=== PATIENT | female | born 1990 | race Caucasian/White ===

== ENCOUNTER 2016-08-01 17:08 | Emergency (ER) | payer BC, OTHER ==
--- NOTE | 2016-08-01 20:02 | ED ---
General Adult HPI - General Chief complaint: Abdominal Pain Stated complaint: Bleeding, 8 weeks preg Time Seen by Provider: 08/01/16 19:38 Source: patient, RN notes reviewed Mode of arrival: ambulatory Limitations: no limitations - History of Present Illness Initial comments: Patient is a , 25-year-old female who presents emergency room today with a chief complaint of vaginal spotting that began earlier this morning. Denies any bleeding at this time but does admit to some lower abdominal cramping. States she called her [employer] who advised come to the emergency room for evaluation. Patient denies any other complaints or associated symptoms. States pain in her lower abdomen currently rates as 6/10. Describes as cramping. Patient denies any recent fever, chills, shortness of breath, chest pain, back pain, nausea or vomiting, numbness or tingling, dysuria or hematuria , constipation or diarrhea, headaches or visual changes, or any other complaints. - Related Data Home Medications Medication Instructions Recorded Confirmed Pnv with Ca,No.72/Iron/FA 1 tab PO DAILY 08/01/16 08/01/16 [ Plus Tablet] Previous Rx's Medication Instructions Recorded Nitrofurantoin Monohyd/M-Cryst 100 mg PO Q12HR #14 cap 08/01/16 [Macrobid] Allergies Allergy/AdvReac Type Severity Reaction Status Date / Time Penicillins Allergy Unknown Unknown Verified 08/01/16 19:48 Childhood Review of Systems ROS Statement: Those systems with pertinent positive or pertinent negative responses have been documented in the HPI. ROS Other: All systems not noted in ROS Statement are negative. Past Medical History Past Medical History: No Reported History History of Any Multi-Drug Resistant Organisms: None Reported Past Surgical History: Appendectomy, Section Past Anesthesia/Blood Transfusion Reactions: No Reported Reaction Past Psychological History: No Psychological Hx Reported Smoking Status: Current every day smoker Past Alcohol Use History: None Reported Past Drug Use History: None Reported - Past Family History Father Additional Family Medical History / Comment(s): Bipolar General Exam - General Exam Comments Initial Comments: General: The patient is awake and alert, in no distress, and does not appear acutely ill. Eye: Pupils are equal, round and reactive to light, extra-ocular movements are intact. No nystagmus. There is normal conjunctiva bilaterally. No signs of icterus. Ears, nose, mouth and throat: There are moist mucous membranes and no oral lesions. Neck: The neck is supple, there is no tenderness or JVD. Cardiovascular: There is a regular rate and rhythm. No murmur, rub or gallop is appreciated. Respiratory: Lungs are clear to auscultation, respirations are non-labored, breath sounds are equal. No wheezes, stridor, rales, or rhonchi. Gastrointestinal: Normal appearance them. Normal bowel sounds. Soft on palpation. Patient does have mild tenderness suprapubic and left lower quadrant. No rebound tenderness. No guarding. No CVA tenderness. Musculoskeletal: Normal ROM, no tenderness. Strength 5/5. Sensation intact. Pulses equal bilaterally 2+. Neurological: A&O x 3. CN II-XII intact, There are no obvious motor or sensory deficits. Coordination appears grossly intact. Speech is normal. Skin: Skin is warm and dry and no rashes or lesions are noted. Psychiatric: Cooperative, appropriate mood & affect, normal judgment. Limitations: no limitations Course Vital Signs 08/01/16 17:49 Temperature 97.9 F Pulse Rate 76 Respiratory 18 Rate Blood Pressure 113/61 O2 Sat by Pulse 99 Oximetry Medical Decision Making - Medical Decision Making Patient reexamined at this time shows no signs of distress resting comfortable in the stretcher. Denies any bleeding at this time. States feeling comfortable here. Ultrasound reviewed and shows no IUP measuring 8 weeks 2 days. Patient's labs reviewed 14,000 white count. 15 white cells in the urinalysis. Remaining labs unremarkable. Patient will be cover for urinary tract infection started on Macrobid and advised follow-up the [employer] over the last 2 days. Options were discussed about pelvic exam here the emergency room which patient has declined stating she will follow up with [employer]. Patient is advised return to emergency room if any symptoms increase or worsen or fail concerns. - Lab Data Result diagrams: 08/01/16 20:06 08/01/16 20:06 Lab Results 08/01/16 08/01/16 08/01/16 Range/Units 19:45 20:06 20:06 WBC 14.0 H (3.8-10.6) k/uL RBC 4.65 (3.80-5.40) m/uL Hgb 11.9 (11.4-16.0) gm/dL Hct 37.4 (34.0-46.0) % MCV 80.5 (80.0-100.0) fL MCH 25.6 (25.0-35.0) pg MCHC 31.8 (31.0-37.0) g/dL RDW 15.2 (11.5-15.5) % Plt Count 365 (150-450) k/uL Neutrophils % 66 % Lymphocytes % 27 % Monocytes % 5 % Eosinophils % 2 % Basophils % 0 % Neutrophils # 9.2 H (1.3-7.7) k/uL Lymphocytes # 3.7 (1.0-4.8) k/uL Monocytes # 0.7 (0-1.0) k/uL Eosinophils # 0.2 (0-0.7) k/uL Basophils # 0.1 (0-0.2) k/uL Sodium (137-145) mmol/L Potassium (3.5-5.1) mmol/L Chloride (98-107) mmol/L Carbon Dioxide (22-30) mmol/L Anion Gap mmol/L BUN (7-17) mg/dL Creatinine (0.52-1.04) mg/dL Est GFR (MDRD) Af Amer (>60 ml/min/1.73 sqM) Est GFR (MDRD) Non-Af (>60 ml/min/1.73 sqM) Glucose (74-99) mg/dL Calcium (8.4-10.2) mg/dL Total Bilirubin (0.2-1.3) mg/dL AST (14-36) U/L ALT (9-52) U/L Alkaline Phosphatase (38-126) U/L Total Protein (6.3-8.2) g/dL Albumin (3.5-5.0) g/dL Urine Color Light Yellow Urine Appearance Clear (Clear) Urine pH 6.5 (5.0-8.0) Ur Specific Amma 1.004 (1.001-1.035) Urine Protein Negative (Negative) Urine Glucose (UA) Negative (Negative) Urine Ketones Negative (Negative) Urine Blood Negative (Negative) Urine Nitrate Negative (Negative) Urine Bilirubin Negative (Negative) Urine Urobilinogen <2.0 (<2.0) mg/dL Ur Leukocyte Esterase Moderate H (Negative) Urine RBC 1 (0-5) /hpf Urine WBC 15 H (0-5) /hpf Ur Squamous Epith Cells 1 (0-4) /hpf Urine Bacteria Rare H (None) /hpf Urine Mucus Rare H (None) /hpf Blood Type B Positive Blood Type Recheck No 08/01/16 Range/Units 20:06 WBC (3.8-10.6) k/uL RBC (3.80-5.40) m/uL Hgb (11.4-16.0) gm/dL Hct (34.0-46.0) % MCV (80.0-100.0) fL MCH (25.0-35.0) pg MCHC (31.0-37.0) g/dL RDW (11.5-15.5) % Plt Count (150-450) k/uL Neutrophils % % Lymphocytes % % Monocytes % % Eosinophils % % Basophils % % Neutrophils # (1.3-7.7) k/uL Lymphocytes # (1.0-4.8) k/uL Monocytes # (0-1.0) k/uL Eosinophils # (0-0.7) k/uL Basophils # (0-0.2) k/uL Sodium 141 (137-145) mmol/L Potassium 3.9 (3.5-5.1) mmol/L Chloride 105 (98-107) mmol/L Carbon Dioxide 24 (22-30) mmol/L Anion Gap 12 mmol/L BUN 4 L (7-17) mg/dL Creatinine 0.48 L (0.52-1.04) mg/dL Est GFR (MDRD) Af Amer >60 (>60 ml/min/1.73 sqM) Est GFR (MDRD) Non-Af >60 (>60 ml/min/1.73 sqM) Glucose 92 (74-99) mg/dL Calcium 9.7 (8.4-10.2) mg/dL Total Bilirubin 0.2 (0.2-1.3) mg/dL AST 18 (14-36) U/L ALT 29 (9-52) U/L Alkaline Phosphatase 68 (38-126) U/L Total Protein 7.2 (6.3-8.2) g/dL Albumin 4.2 (3.5-5.0) g/dL Urine Color Urine Appearance (Clear) Urine pH (5.0-8.0) Ur Specific Amma (1.001-1.035) Urine Protein (Negative) Urine Glucose (UA) (Negative) Urine Ketones (Negative) Urine Blood (Negative) Urine Nitrate (Negative) Urine Bilirubin (Negative) Urine Urobilinogen (<2.0) mg/dL Ur Leukocyte Esterase (Negative) Urine RBC (0-5) /hpf Urine WBC (0-5) /hpf Ur Squamous Epith Cells (0-4) /hpf Urine Bacteria (None) /hpf Urine Mucus (None) /hpf Blood Type Blood Type Recheck Disposition Clinical Impression: UTI (urinary tract infection), Disposition: HOME SELF-CARE Condition: Good Instructions: Urinary Tract Infection in Women (ED) Additional Instructions: Please use medication as discussed. Please follow-up with [employer] in the next 2 days. Please return to emergency room if the symptoms increase or worsen or for any other concerns. Prescriptions: Nitrofurantoin Monohyd/M-Cryst [Macrobid] 100 mg PO Q12HR #14 cap Referrals: Frances Gibson MD [Primary Care Provider] - 1-2 days Dom Markham DO [Doctor of Osteopathic Medicine] - 1-2 days Time of Disposition: 21:08
[2016-08-01 20:15] LABS: Appearance,Urine Clear (Clear); Bacteria,Urine Rare /hpf; Bilirubin,Urine Negative (Negative); Glucose,Urine (UA) Negative (Negative); Ketones,Urine Negative (Negative); Leukocyte Esterase,Urine Moderate (Negative); Mucus,Urine Rare /hpf; Nitrite,Urine Negative (Negative); PH, Urine 6.5 (5.0-8.0); Particle Count 1510; Protein,Urine Negative (Negative); RBC,Urine 1 /hpf (0-5); Specific Gravity,Urine 1.004 (1.001-1.035); Squamous Epithelial Cell,Urine 1 /hpf (0-4); UA Billing (MACRO vs. MICRO) MICRO; Urobilinogen,Urine <2.0 mg/dL (<2.0); WBC,Urine 15 /hpf (0-5)
[2016-08-01 20:17] LABS: Basophils # (A) 0.1 k/uL (0-0.2); Basophils % (A) 0 %; CH 26.2; CHCM 32.6; Eosinophils # (A) 0.2 k/uL (0-0.7); Eosinophils % (A) 2 %; HCT 37.4 % (34.0-46.0); HDW 2.71; HGB 11.9 gm/dL (11.4-16.0); Luc # (Auto) 0.12; Luc % (Auto) 1; Lymphocytes # (A) 3.7 k/uL (1.0-4.8); Lymphocytes % (A) 27 %; MCH 25.6 pg (25.0-35.0); MCHC 31.8 g/dL (31.0-37.0); MCV 80.5 fL (80.0-100.0); Mean Platelet Volume 7.2; Monocytes # (A) 0.7 k/uL (0-1.0); Monocytes % (A) 5 %; Neutrophils # (A) 9.2 k/uL (1.3-7.7); Neutrophils % (A) 66 %; RBC 4.65 m/uL (3.80-5.40); RDW 15.2 % (11.5-15.5); WBC (Perox) 14.04
[2016-08-01 20:27] LABS: ALT 29 U/L (9-52); AST 18 U/L (14-36); Alkaline Phosphatase 68 U/L (38-126); Anion Gap 12 mmol/L; Blood Urea Nitrogen 4 mg/dL (7-17); Calcium 9.7 mg/dL (8.4-10.2); Carbon Dioxide 24 mmol/L (22-30); Chloride 105 mmol/L (98-107); Glucose 92 mg/dL (74-99); Non-African American GFR(MDRD) >60 (>60 ml/min/1.73 sqM); Potassium 3.9 mmol/L (3.5-5.1); Sodium 141 mmol/L (137-145); Total Bilirubin 0.2 mg/dL (0.2-1.3); Total Protein 7.2 g/dL (6.3-8.2)
--- NOTE | 2016-08-01 21:00 | US ---
EXAMINATION TYPE: US OB <=14 wks DATE OF EXAM: 08/01/2016 7:40 PM COMPARISON: NONE CLINICAL HISTORY: bleeding- dark, cramping, . EXAM PERFORMED: Transabdominal (TA) EXAM MEASUREMENTS: GESTATIONAL AGE / DATING Dates by LMP: ( 8 weeks/1 days) EDC: 03/12/2017 Dates by Current Scan: (8 weeks/2 days) EDC: 03/11/2017 MATERNAL ANATOMY Uterus: 8.5 x 6.8 x 5.7 cm Right Ovary: 3.4 x 1.7 x 2.3 cm Left Ovary: 3.7 x 1.9 x 1.7 cm Post CDS / Adnexa: no free fluid Presence of subchorionic bleed: 2.3 x 0.9 x 0.3 cm GESTATION / SURVEY CRL: 1.8 cm (8 weeks/2 days) MSD: not measured Yolk Sac (normal less than 6mm): 4.2 mm Heart Rate: 162 bpm Rhythm: Normal IUP: Viable IUP Date of LMP: 06/05/2016, Beta HcG (if available): not available IMPRESSION: Live IUP measuring 8 weeks 2 days
[2016-08-01 21:14] LABS: HCG,Quantitative Serum 86632.7 mIU/mL
[2016-08-01 21:42] VITALS: BP 100/64; PULSE 69; RESP 16; TEMP 99.3
== END 2016-08-01 21:42 | disposition home or self-care (01) ==
LOC: EC 17:08
DX: O23.41 Unspecified infection of urinary tract in pregnancy, first trimester (principal); O99.331 Smoking (tobacco) complicating pregnancy, first trimester; F17.200 Nicotine dependence, unspecified, uncomplicated; Z3A.08 8 weeks gestation of pregnancy; Z88.0 Allergy status to penicillin
CPT/HCPCS: 36415; 76801; 80053; 81001; 84702; 85025; 86900; 86901; 87086; 99284

== ENCOUNTER 2017-01-16 00:15 | Outpatient (CLI) | payer OTHER ==
[2017-01-16 02:14] VITALS: BP 114/66; PULSE 86; RESP 14; TEMP 96.5
--- NOTE | 2017-01-18 12:05 | P.MSEPDOC ---
Presenting Problems - Arrival Data Date of Arrival on Unit: 01/16/17 Time of Arrival on Unit: 00:00 Mode of Transport: Wheelchair - Complaint OB-Reason for Admission/Chief Complaint: Possible Onset of Labor Medical History - Information : 3 Para: 2 Term: 2 : 0 Abortions: Spontaneous or Elective: 0 Number of Living Children: 2 - Gestational Age Expected Date of Delivery: 03/12/17 Gestational Age by ROMAN (wks/days): 32 Weeks and 3 Days Review of Systems - Review of Systems Constitutional: No problems Breast: No problems ENT: No problems Cardiovascular: No problems Respiratory: No problems Gastrointestinal: No problems Genitourinary: No problems Musculoskeletal: No problems Neurological: No problems Skin: No problems Vital Signs - Temperature Temperature: 96.5 F Temperature Source: Tympanic - Pulse Right Brachial Pulse Rate: 86 Pulse Assessment Method: Automatic Cuff - Respirations Respiratory Rate: 14 Oxygen Delivery Method: Room Air - Blood Pressure Right Arm Blood Pressure: 114/66 Blood Pressure Mean: 82 Blood Pressure Source: Automatic Cuff Medical Screen Scoring (Pre) - Cervical Exam Dilation: 0 cm = 0 Effacement: More than 50% = 2 Membranes: Intact - Uterine Contractions Frequency: N/A Duration: N/A Intensity: N/A - Maternal Vital Signs Maternal Temperature: N/A Maternal Respirations: N/A - Maternal Trauma Maternal Trauma: N/A - Assessment Heart Rate - NICHD Category: Category I (Normal) = 0 Position: N/A Station: N/A - Total Score Total Score (Pre): 2 - Level of Risk Level of Risk: N/A Physician Notification (Pre) - Physician Notified Physician Notified Date: 01/16/17 Physician Notified Time: 01:20 Physician/Practitioner Notifed:: Dr. Watkins New Order Received: Yes Disposition - Disposition Discharge Date: 01/16/17 Discharge Time: 01:30 I agree with the RN Medical Screening Exam: No Physician's MSE Comment: note incomplete (disposition) Risk & Benefit of care provided described in d/c instruction: No Diagnosis: 32 WEEKS GESTATION OF
== END 2017-01-16 01:30 | disposition home or self-care (01) ==
LOC: FBPOP 00:15
PROVIDERS: ATTEND Obstetrics & Gynecology
DX: O24.419 Gestational diabetes mellitus in pregnancy, unspecified control (principal); Z3A.32 32 weeks gestation of pregnancy
CPT/HCPCS: 59025; 84112; 99213

== ENCOUNTER 2017-03-04 02:24 | Outpatient (CLI) | payer OTHER ==
[2017-03-04 04:06] VITALS: BP 117/72; PULSE 82; RESP 18; TEMP 96.5
--- NOTE | 2017-04-22 09:25 | P.MSEPDOC ---
Presenting Problems - Arrival Data Date of Arrival on Unit: 03/04/17 Time of Arrival on Unit: 02:25 Mode of Transport: Wheelchair - Complaint OB-Reason for Admission/Chief Complaint: Possible Onset of Labor Comment: cnx beginning about 0000 Medical History - Information : 3 Para: 2 Term: 2 : 0 Abortions: Spontaneous or Elective: 0 Number of Living Children: 2 - Gestational Age Gestational Age by ROMAN (wks/days): 38 Weeks and 6 Days - History Complications: GBS+, Smoker Review of Systems - Review of Systems Constitutional: No problems Breast: No problems ENT: No problems Cardiovascular: No problems Respiratory: No problems Gastrointestinal: No problems Genitourinary: No problems Musculoskeletal: No problems Neurological: No problems Skin: No problems Vital Signs - Temperature Temperature: 96.5 F Temperature Source: Temporal Artery Scan - Pulse Pulse Oximetery Pulse Rate: 82 Pulse Assessment Method: Pulse Oximetry - Respirations Respiratory Rate: 18 Oxygen Delivery Method: Room Air O2 Sat by Pulse Oximetry: 97 - Blood Pressure Right Arm Blood Pressure: 117/72 Blood Pressure Mean: 87 Blood Pressure Source: Automatic Cuff Medical Screen Scoring (Pre) - Cervical Exam Dilation: 1-3 cm = 1 Effacement: More than 50% = 2 Membranes: Intact - Uterine Contractions Frequency: Scheduled / = 6 Duration: > 40 seconds = 2 Intensity: N/A - Maternal Vital Signs Maternal Temperature: N/A Maternal Blood Pressure: N/A Signs of Preeclampsia: N/A - Maternal Trauma Maternal Trauma: N/A - Assessment Baseline FHR: 125 Heart Rate - NICHD Category: Category I (Normal) = 0 NST: Reactive Position: N/A Station: N/A - Total Score Total Score (Pre): 11 - Level of Risk Level of Risk: High (10+) Physician Notification (Pre) - Physician Notified Physician Notified Date: 03/04/17 Physician Notified Time: 03:35 Physician/Practitioner Notifed:: Anselmo Spoke With: Anselmo New Order Received: Yes (see comment below) - Notification Comment Comment: Discussed options with patient for discharge. Dr. Briones gave patient the option to stay and have cervix re-checked in another hour, or she may go home and walk around. Patient wished to be discharged to go home and walk. Given thorough instructions for when to return. Patient to follow up at next appt with Dr. Escobar this or to call office to update Dr. Escobar and inquire about sooner appt. Patient verablized understanding of options and for when to return to hospital. Medical Screen Scoring (Post) - Cervical Exam Dilation: 1-3 cm = 1 Effacement: More than 50% = 2 Membranes: Intact - Uterine Contractions Frequency: Scheduled / = 6 Duration: > 40 seconds = 2 Intensity: N/A - Maternal Vital Signs Maternal Temperature: N/A Maternal Blood Pressure: N/A Signs of Preeclampsia: N/A Maternal Respirations: N/A - Maternal Trauma Maternal Trauma: N/A - Assessment Heart Rate: 125 Heart Rate - NICHD Category: Category I (Normal) = 0 NST: Reactive Position: N/A Station: N/A - Total Score Total Score (Post): 11 - Post Treatment Level of Risk Post Treatment Level of Risk: High (10+) Physician Notification (Post) - Physician Notified Physician Notified Date: 03/04/17 Physician Notified Time: 03:35 Physician/Practitioner Notified:: Anselmo Spoke With: Anselmo New Order Received: Yes (discharge order) - Notification Comment Comment: Discussed options with patient for discharge. Dr. Briones gave patient the option to stay and have cervix re-checked in another hour, or she may go home and walk around. Patient wished to be discharged to go home and walk. Given thorough instructions for when to return. Patient to follow up at next appt with Dr. Escobar this or to call office to update Dr. Escobar and inquire about sooner appt. Patient verablized understanding of options and for when to return to hospital. Disposition - Disposition OB Disposition: Discharge to home Discharge Date: 03/04/17 Discharge Time: 03:45 I agree with the RN Medical Screening Exam: Yes Risk & Benefit of care provided described in d/c instruction: Yes Diagnosis: FALSE LABOR BEFORE 37 COMPLETED WEEKS OF GEST, THIRD TRI
== END 2017-03-04 03:45 | disposition home or self-care (01) ==
LOC: FBPOP 02:24
PROVIDERS: ATTEND Obstetrics & Gynecology
DX: O47.03 False labor before 37 completed weeks of gestation, third trimester (principal); Z3A.38 38 weeks gestation of pregnancy
CPT/HCPCS: 59025; 99213

== ENCOUNTER 2017-03-08 11:40 | Outpatient (CLI) | payer OTHER ==
[2017-03-08 12:11] VITALS: BP 115/69; PULSE 85; RESP 18; TEMP 98.3
--- NOTE | 2017-03-09 13:31 | P.MSEPDOC ---
Presenting Problems - Arrival Data Date of Arrival on Unit: 03/08/17 Time of Arrival on Unit: 11:45 Mode of Transport: Ambulatory - Complaint OB-Reason for Admission/Chief Complaint: Observation/Evaluation Comment: ligament pain, decreased movement Medical History - Information : 3 Para: 2 Term: 2 : 0 Abortions: Spontaneous or Elective: 0 Number of Living Children: 2 - Gestational Age Expected Date of Delivery: 03/12/17 Gestational Age by ROMAN (wks/days): 39 Weeks and 4 Days - History Complications: Prior , Smoker Review of Systems - Review of Systems Constitutional: No problems Breast: No problems ENT: No problems Cardiovascular: No problems Respiratory: No problems Gastrointestinal: No problems Genitourinary: No problems Musculoskeletal: No problems Neurological: No problems Skin: No problems Vital Signs - Temperature Temperature: 98.3 F Temperature Source: Oral - Pulse Right Sitting Brachial Pulse Rate: 85 Pulse Assessment Method: Automatic Cuff - Respirations Respiratory Rate: 18 Oxygen Delivery Method: Room Air - Blood Pressure Right Arm Sitting Blood Pressure: 115/69 Blood Pressure Mean: 84 Blood Pressure Source: Automatic Cuff Medical Screen Scoring (Pre) - Cervical Exam Dilation: Exam Deferred Effacement: Exam Deferred - Uterine Contractions Frequency: N/A Duration: N/A Intensity: N/A - Maternal Vital Signs Maternal Temperature: N/A Maternal Blood Pressure: N/A Signs of Preeclampsia: N/A Maternal Respirations: N/A - Maternal Trauma Maternal Trauma: N/A - Assessment Baseline FHR: 135 Heart Rate - NICHD Category: Category I (Normal) = 0 - Total Score Total Score (Pre): 0 - Level of Risk Level of Risk: Low (0-5) Medical Screen Scoring (Post) - Cervical Exam Dilation: 1-3 cm = 1 - Uterine Contractions Frequency: > 5 minutes apart = 1 Duration: N/A Intensity: N/A - Maternal Vital Signs Maternal Temperature: N/A Maternal Blood Pressure: N/A Signs of Preeclampsia: N/A Maternal Respirations: N/A - Maternal Trauma Maternal Trauma: N/A - Assessment Heart Rate: 120 Heart Rate - NICHD Category: Category I (Normal) = 0 NST: Reactive Position: N/A Station: N/A - Total Score Total Score (Post): 2 - Post Treatment Level of Risk Post Treatment Level of Risk: Low (0-5) Physician Notification (Post) - Physician Notified Physician Notified Date: 03/08/17 Physician Notified Time: 12:47 Physician/Practitioner Notified:: Dr Escobar Spoke With: Dr Escobar New Order Received: Yes - Notification Comment Comment: Discharge home Disposition - Disposition OB Disposition: Discharge to home Discharge Date: 03/08/17 Discharge Time: 12:48 I agree with the RN Medical Screening Exam: Yes Risk & Benefit of care provided described in d/c instruction: Yes Diagnosis: FALSE LABOR AT OR AFTER 37 COMPLETED WEEKS OF GESTATION
== END 2017-03-08 12:48 | disposition home or self-care (01) ==
LOC: FBPOP 11:40
PROVIDERS: ATTEND Obstetrics & Gynecology
DX: O47.1 False labor at or after 37 completed weeks of gestation (principal); Z3A.39 39 weeks gestation of pregnancy
CPT/HCPCS: 59025; 99213

== ENCOUNTER 2017-03-13 00:01 | Inpatient (IN) | payer OTHER ==
[2017-03-13] MEDS ORDERED: OXYTOCIN 10 UNIT/ML 1 ML VIAL IM PRN (01:38)
[2017-03-13] MEDS ORDERED: CARBOPROST TROMETHAMINE 250 MCG/ML 1 ML AMP IM PRN (01:38)
[2017-03-13] MEDS ORDERED: LIDOCAINE 1% (PF) 10 MG/ML (30 ML SDV) SQ PRN (01:38)
[2017-03-13] MEDS ORDERED: METHYLERGONOVINE 0.2 MG/ML 1 ML AMP IM PRN (01:38)
[2017-03-13] MEDS ORDERED: TERBUTALINE 1 MG/ML VIAL SQ PRN (01:38)
[2017-03-13 01:52] VITALS: BMI 31.2
[2017-03-13] MEDS: LACTATED RINGERS 1,000 ML IV SCH ×3 (01:58→21:20)
[2017-03-13 02:09] LABS: Anisocytosis Slight; Basophils % (A) 0 %; CH 23.3; Eosinophils # (A) 0.2 k/uL (0-0.7); Eosinophils % (A) 1 %; HCT 28.4 % (34.0-46.0); HDW 3.84; HGB 9.5 gm/dL (11.4-16.0); Hypochromasia Marked; Luc # (Auto) 0.28; Luc % (Auto) 2; Lymphocytes # (A) 3.2 k/uL (1.0-4.8); Lymphocytes % (A) 21 %; MCH 25.3 pg (25.0-35.0); MCHC 33.4 g/dL (31.0-37.0); MCV 75.8 fL (80.0-100.0); Mean Platelet Volume 7.3; Microcytosis Slight; Monocytes # (A) 0.7 k/uL (0-1.0); Monocytes % (A) 5 %; Neutrophils # (A) 11.3 k/uL (1.3-7.7); Neutrophils % (A) 72 %; Poikilocytosis Slight; RBC 3.75 m/uL (3.80-5.40); RDW 16.7 % (11.5-15.5); WBC 15.8 k/uL (3.8-10.6); WBC (Perox) 15.91
[2017-03-13] MEDS: CLINDAMYCIN 900 MG in DEXTROSE 5% IN WATER 50 ML IVPB SCH ×4 (02:37→21:19)
[2017-03-13] MEDS: BUTORPHANOL 1 MG/ML 1 ML VIAL IV PRN ×2 (03:20→05:53)
[2017-03-13] MEDS ORDERED: fentaNYL (PF) 50 MCG/ML 5 ML AMP ONE (07:41)
[2017-03-13] MEDS ORDERED: SODIUM CHLORIDE 0.9% 100 ML BAG ONE (07:41)
[2017-03-13] MEDS ORDERED: BUPIVACAINE (PF) 0.25% 30 ML VIAL ONE (07:41)
[2017-03-13] MEDS ORDERED: BUPIVACAINE (PF) 0.25% 25 ML, fentaNYL (PF) 200 MCG in SODIUM CHLORIDE 0.9% 71 ML EPIDURAL ONE (07:59)
--- NOTE | 2017-03-13 08:26 | P.HPOB ---
History of Present Illness H&P Date: 03/13/17 Chief Complaint: Intrauterine at 40-1/7 weeks, contractions Lorena is a very pleasant 3 para 2001 at 40-1/7 weeks with an estimated due date of 03/12/2017. She presented to labor and delivery last night with complaints of contractions every 5 minutes. On the monitor she was felicity regularly and initially her cervix was 4 cm dilated. After an hour of monitoring she made change to 5 cm and was admitted to labor and delivery. At this time she did note movement, denied loss of fluid or vaginal bleeding. She did minimal overnight but did receive 2 doses of Stadol for pain control. She currently has an epidural. blood work showed a blood type of B+ she was rubella, hepatitis B surface antigen negative, group beta strep positive and is being treated with clindamycin. Her HIV is negative. OB history she does have a history of a primary low transverse section with her first and subsequent successful with #2. She did is desirous of a vaginal this time Past Medical History Past Medical History: No Reported History History of Any Multi-Drug Resistant Organisms: None Reported Past Surgical History: Appendectomy, Section Past Anesthesia/Blood Transfusion Reactions: No Reported Reaction Past Psychological History: No Psychological Hx Reported Smoking Status: Current every day smoker Past Alcohol Use History: None Reported Past Drug Use History: None Reported - Past Family History Father Additional Family Medical History / Comment(s): Bipolar Medications and Allergies Home Medications Medication Instructions Recorded Confirmed Type Omeprazole [PriLOSEC] 40 mg PO DAILY 03/04/17 03/13/17 History Pnv No.95/Ferrous Fum/Folic AC 1 tab PO DAILY 03/08/17 03/13/17 History [ Multivitamin Tablet] Allergies Allergy/AdvReac Type Severity Reaction Status Date / Time Penicillins Allergy Unknown Unknown Verified 03/13/17 00:12 Childhood Exam Osteopathic Statement: *. No significant issues noted on an osteopathic structural exam other than those noted in the History and Physical/Consult. - Vital Signs Vital signs: Vital Signs Temp Pulse Resp BP Pulse Ox 03/13/17 00:14 96.7 F L 84 18 105/63 97 Intake and Output 03/12/17 03/13/17 03/13/17 22:59 06:59 14:59 Intake Total 50 Balance 50 Intake: Intake, IV Titration 50 Amount Clindamycin 900 mg In 50 Dextrose 5% in Water 50 ml @ 100 mls/hr IVPB Q8H [facility] Rx#:[id number] Other: # Voids 2 Weight 82.554 kg - OBG Physical Exam Abdomen: Gravid and appropriate for gestational age Cervix: 5 cm dilated per RN Results Result Diagrams: 03/13/17 01:55 Abnormal Lab Results - Last 24 Hours (Table) 03/13/17 Range/Units 01:55 WBC 15.8 H (3.8-10.6) k/uL RBC 3.75 L (3.80-5.40) m/uL Hgb 9.5 L (11.4-16.0) gm/dL Hct 28.4 L (34.0-46.0) % MCV 75.8 L (80.0-100.0) fL RDW 16.7 H (11.5-15.5) % Neutrophils # 11.3 H (1.3-7.7) k/uL Assessment and Plan (1) Term Narrative/Plan: She was admitted to labor and delivery for expectant management. Anticipate spontaneous vaginal delivery. Status: Acute (2) Positive GBS test Status: Acute (3) Previous section Status: Acute
[2017-03-13] MEDS ORDERED: OXYTOCIN 20 UNITS/1000 ML NS 1,000 ML IV SCH ×2 (09:00→11:00)
[2017-03-13] MEDS ORDERED: CLINDAMYCIN 900 MG in DEXTROSE 5% IN WATER 50 ML IVPB SCH ×2 (09:43)
[2017-03-13] MEDS ORDERED: diphenhydrAMINE 50 MG/ML 1 ML VIAL IVP PRN ×2 (10:51)
[2017-03-13] MEDS ORDERED: Acetaminophen-Codeine 300-30mg TAB PO PRN (10:51)
[2017-03-13] MEDS ORDERED: LANOLIN CREAM 5 GM TUBE TOPICAL PRN (10:51)
[2017-03-13] MEDS ORDERED: ZOLPIDEM 5 MG TAB PO PRN (10:51)
[2017-03-13] MEDS ORDERED: HYDROCORTISONE 2.5% RECTAL CREAM 30 GM TUBE RECTAL PRN (10:51)
[2017-03-13] MEDS ORDERED: ACETAMINOPHEN TAB 325 MG TAB PO PRN (10:51)
[2017-03-13] MEDS ORDERED: diphenhydrAMINE 25 MG CAP PO PRN (10:51)
[2017-03-13] MEDS ORDERED: WITCH HAZEL 1 EACH MED..PAD TOPICAL PRN (10:51)
[2017-03-13] MEDS ORDERED: diphenhydrAMINE 50 MG CAP PO PRN (10:51)
[2017-03-13] MEDS ORDERED: SIMETHICONE 80 MG CHEWABLE PO PRN (10:51)
[2017-03-13] MEDS ORDERED: BENZOCAINE/MENTHOL SPRAY 1 GM/SPRAY AEROSOL TOPICAL PRN (10:51)
--- NOTE | 2017-03-13 10:56 | P.PROBDLV ---
Vaginal Delivery Note - . Vaginal Delivery Note: The patient is a 26-year-old 3 para 2001 admitted at 40 and one sevenths weeks by good dating parameters. She is admitted in early active labor having changed her cervix in triage from 4-5 cm. On admission, all signs reassuring. She does carry a history of a previous section with a successful vaginal after section in her second . She has requested vaginal trial of labor for this . She is also known to be group B strep positive. As result, she had antibiotic prophylaxis started and an epidural catheter placed for analgesia. She later underwent artificial rupture of membranes and had Pitocin augmentation started. She then progressed fairly rapidly through the remainder the active phase of labor to complete where after she pushed over the course of approximately 40 minutes to a normal spontaneous vaginal delivery, successful , of a viable 8 lbs. 6 oz. baby boy with Apgars of 8 at 1 minute and 9 at 5 minutes. The placenta was delivered spontaneously, intact, and grossly normal with a grossly normal, centrally inserted three-vessel cord. A small second-degree midline episiotomy was cut for delivery over the site of a previous episiotomy. This was noted to have extended minimally. It was repaired in standard fashion using 3-0 chromic catgut without difficulty. Estimated blood loss for the case was approximately 300 mL. There were no complications. All sponge, instrument, and needle counts were correct. Both mother and infant are resting comfortably in recovery.
[2017-03-13] MEDS: Acetaminophen-Codeine 300-30mg TAB PO PRN (14:14)
[2017-03-13] MEDS: SENNOSIDES-DOCUSATE SODIUM 1 EACH TAB PO SCH (20:12)
[2017-03-13] MEDS: IBUPROFEN 600 MG TAB PO PRN (20:13)
[2017-03-14] MEDS: Acetaminophen-Codeine 300-30mg TAB PO PRN (00:12)
[2017-03-14] MEDS: IBUPROFEN 600 MG TAB PO PRN (06:06)
[2017-03-14] MEDS: SENNOSIDES-DOCUSATE SODIUM 1 EACH TAB PO SCH (08:23)
--- NOTE | 2017-03-14 08:55 | P.DS ---
Providers Date of admission: 03/13/17 01:30 Expected date of discharge: 03/14/17 Attending physician: Bassem Escobar Primary care physician: Bassem Escobar - Discharge Diagnosis(es) (1) Normal spontaneous vaginal delivery Current Visit: Yes Status: Acute (2) Vaginal after section Current Visit: Yes Status: Acute Hospital Course: The patient is a 26-year-old 3 para 2 scissors or 2 admitted at 40 and one sevenths weeks by good dating parameters. She carries a history of a previous section followed by successful delivery and had requested vaginal trial of labor. She presented to labor and delivery in early active labor with all signs reassuring. She was additionally group B strep positive and had antibiotic prophylaxis started. She made relatively slow progress but did have an epidural catheter placed for analgesia. She then had Pitocin augmentation started as well as artificial rupture of membranes for clear fluid. She then made fairly rapid progress through the remainder of the active phase of labor to complete and pushed to a normal spontaneous vaginal delivery of a viable 8 lbs. 6 oz. baby boy with Apgars of 8 at 1 minute and 9 at 5 minutes. Her course was unremarkable with vital signs remaining stable and her temperature was afebrile throughout. She was deemed stable for discharge on day #1 and was discharged home to follow-up in the office in 6 weeks' time routinely. Discharge instructions included calling for any significantly increased bleeding or foul-smelling lochia, significantly increased fever or abdominal pain, perineal complaints, breast complaints, or anything else that concerned her. She was additionally instructed to have nothing in vagina for at least 6 weeks time to include intercourse. She understood her instructions and agrees to follow up as noted above. Discharge medications included continued vitamins as well as [id number] analgesic pain medications. Maternal blood type is B+ and rubella status is immune. She had initially considered tubal ligation but is currently not certain whether she wishes to have this performed at or around her 6 week visit. Procedures: #1. Antibody prophylaxis #2. Epidural analgesia #3. Artificial rupture of membranes #4. Pitocin augmentation #5. Normal spontaneous vaginal delivery # 6. Second-degree midline episiotomy and repair Patient Condition at Discharge: Good Plan - Discharge Summary New Discharge Prescriptions: No Action Omeprazole [PriLOSEC] 40 mg PO DAILY Pnv No.95/Ferrous Fum/Folic AC [ Multivitamin Tablet] 1 tab PO DAILY Discharge Medication List Omeprazole [PriLOSEC] 40 mg PO DAILY 03/04/17 [History] Pnv No.95/Ferrous Fum/Folic AC [ Multivitamin Tablet] 1 tab PO DAILY [History] Follow up Appointment(s)/Referral(s): Bassem Escobar MD [Primary Care Provider] - 6 Weeks Discharge Disposition: HOME SELF-CARE
[2017-03-14 09:32] VITALS: BP 100/68; PULSE 69; RESP 17; TEMP 97.7
== END 2017-03-14 12:01 | disposition home or self-care (01) | DRG 775 ==
LOC: FBPOP 00:01 → 4FBP 01:30
PROVIDERS: ADMIT Obstetrics & Gynecology Obstetrics; ATTEND Obstetrics & Gynecology
PROC: 00HU33Z Insertion of Infusion Device into Spinal Canal, Percutaneous Approach (ICD-10-PCS; principal; 2017-03-13)
PROC: 3E0R3CZ (ICD-10-PCS; principal; 2017-03-13)
PROC: 10907ZC Drainage of Amniotic Fluid, Therapeutic from Products of Conception, Via Natural or Artificial Opening (ICD-10-PCS; principal; 2017-03-13)
PROC: 10E0XZZ Delivery of Products of Conception, External Approach (ICD-10-PCS; principal; 2017-03-13)
PROC: 0W8NXZZ Division of Female Perineum, External Approach (ICD-10-PCS; principal; 2017-03-13)
DX: O99.334 Smoking (tobacco) complicating childbirth (principal); F17.200 Nicotine dependence, unspecified, uncomplicated; Z37.0 Single live birth; O34.211 Maternal care for low transverse scar from previous cesarean delivery; O99.824 Streptococcus B carrier state complicating childbirth; Z3A.40 40 weeks gestation of pregnancy; Z79.899 Other long term (current) drug therapy; Z88.0 Allergy status to penicillin
CPT/HCPCS: 59025; 85025; 86850; 86900; 86901; 88307; 99213

== ENCOUNTER → 2017-07-17 | Outpatient (CLI) | payer OTHER ==
--- NOTE | 2017-07-17 08:13 | US ---
EXAMINATION TYPE: US abdomen complete DATE OF EXAM: 07/17/2017 COMPARISON: CT abdomen and pelvis January 20, 2011 CLINICAL HISTORY: R10.11 Right upper quadrant pain. Bilateral flank pain, history of kidney stones EXAM MEASUREMENTS: Liver Length: 14.4 cm Gallbladder Wall: 0.2 cm CBD: 0.3 cm Spleen: 9.8 cm Right Kidney: 11.4 x 3.8 x 6.0 cm Left Kidney: 12.0 x 5.7 x 5.0 cm Pancreas: visualized portions appear wnl Liver: wnl Gallbladder: no evidence of stones Evidence for sonographic Thornton's sign: no CBD: wnl Spleen: wnl Right Kidney: no evidence of hydronephrosis or mass Left Kidney: no evidence of hydronephrosis or mass Upper IVC: wnl Abd Aorta: wnl The liver is slightly heterogeneous. The intrahepatic portion of the IVC and visualized abdominal ao rta are within normal limits. There is no evidence of cholelithiasis. Common bile duct is unremarka ble. The visualized portions of the pancreas are homogenous. The spleen is unremarkable. Kidneys a re symmetric and free of hydronephrosis. No renal lesions are seen. IMPRESSION: No renal stones or hydronephrosis. No gallstones or ultrasound evidence for acute cholecy stitis. Fairly unremarkable study.
== END | disposition home or self-care (01) ==
LOC: RADUSWWP 07:28
PROVIDERS: ATTEND Internal Medicine
DX: R10.11 Right upper quadrant pain (principal)
CPT/HCPCS: 76700

== ENCOUNTER → 2018-06-11 | Outpatient (CLI) | payer OTHER ==
--- NOTE | 2018-06-11 09:16 | NM ---
EXAMINATION TYPE: NM hepatobiliary w EF DATE OF EXAM: 06/11/2018 COMPARISON: NONE HISTORY: r10.11 - Rt Upper Quad Abdominal Pain TECHNIQUE: After the intravenous administration of 5.04 mCi Tc 99m Mebrofenin hepatobiliary scintigra phy is performed. Immediate images post injection. FINDINGS: There is satisfactory initial accumulation of tracer by the liver. The gallbladder is visualized wit hin 22 minutes. The small bowel activity is noted within 14 minutes. At one hour 8 ounces of oral e nsure plus is given to mimic CCK and gallbladder ejection fraction is calculated at 57 %, in the norm al range. Therefore there is no scintigraphic evidence of cystic or common bile duct obstruction to suggest acute cholecystitis or gallbladder dyskinesia. IMPRESSION: Exam is within normal limits.
== END | disposition home or self-care (01) ==
LOC: RADNMMAIN 06:59
PROVIDERS: ATTEND Internal Medicine
DX: R10.11 Right upper quadrant pain (principal)
CPT/HCPCS: 78226; A9537

== ENCOUNTER 2018-08-15 08:37 | Emergency (ER) | payer OTHER ==
--- NOTE | 2018-08-15 09:03 | ED ---
Female Urogenital HPI - General Chief complaint: Vaginal Bleeding Stated complaint: Vaginal Bleeding Time Seen by Provider: 08/15/18 08:46 Source: patient, RN notes reviewed Mode of arrival: ambulatory Limitations: no limitations - History of Present Illness Initial comments: 27-year-old female presents emergency Department chief complaint of vaginal bleeding early . Patient states her last mental cycle was just over one month ago. Patient states that she was late so she took test which was positive. 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 Patient states that the bleeding started this morning is consistent with her normal menstrual cycle. She also complains of mild cramping. Patient has no dysuria no urinary frequency denies any diarrhea or constipation. Last Menstrual Period: 07/16/18 - Related Data Home Medications Medication Instructions Recorded Confirmed Acetaminophen Tab [Tylenol Tab] 1,000 mg PO Q6HR PRN 08/15/18 08/15/18 Allergies Allergy/AdvReac Type Severity Reaction Status Date / Time Penicillins Allergy Unknown Unknown Verified 08/15/18 09:24 Childhood Review of Systems ROS Statement: Those systems with pertinent positive or pertinent negative responses have been documented in the HPI. ROS Other: All systems not noted in ROS Statement are negative. Past Medical History Past Medical History: No Reported History History of Any Multi-Drug Resistant Organisms: None Reported Past Surgical History: Appendectomy, Section Past Anesthesia/Blood Transfusion Reactions: No Reported Reaction Past Psychological History: Anxiety Smoking Status: Current every day smoker Past Alcohol Use History: Occasional Past Drug Use History: None Reported - Past Family History Father Additional Family Medical History / Comment(s): Bipolar General Exam Limitations: no limitations General appearance: alert, in no apparent distress Head exam: Present: atraumatic, normocephalic, normal inspection Respiratory exam: Present: normal lung sounds bilaterally. Absent: respiratory distress, wheezes, rales, rhonchi, stridor Cardiovascular Exam: Present: regular rate, normal rhythm, normal heart sounds. Absent: systolic murmur, diastolic murmur, rubs, gallop, clicks GI/Abdominal exam: Present: soft, normal bowel sounds. Absent: distended, tenderness, guarding, rebound, rigid Back exam: Absent: CVA tenderness (R), CVA tenderness (L) Neurological exam: Present: alert, oriented X3, CN II-XII intact Skin exam: Present: warm, dry, intact, normal color. Absent: rash Course Vital Signs 08/15/18 08:38 Temperature 97.6 F Pulse Rate 75 Respiratory 16 Rate Blood Pressure 118/77 O2 Sat by Pulse 100 Oximetry Medical Decision Making - Medical Decision Making 27-year-old female presented for vaginal bleeding and possible early . Patient has a negative hCG at this time. She may have had initial positive blood is negative times have a current menstruation. She'll be discharged with follow-up return parameters were discussed. - Lab Data Result diagrams: 08/15/18 09:12 Lab Results 08/15/18 08/15/18 08/15/18 Range/Units 09:12 09:12 09:12 WBC 10.0 (3.8-10.6) k/uL RBC 5.05 (3.80-5.40) m/uL Hgb 14.1 (11.4-16.0) gm/dL Hct 44.7 (34.0-46.0) % MCV 88.5 (80.0-100.0) fL MCH 28.0 (25.0-35.0) pg MCHC 31.6 (31.0-37.0) g/dL RDW 14.2 (11.5-15.5) % Plt Count 404 (150-450) k/uL Neutrophils % 70 % Lymphocytes % 23 % Monocytes % 3 % Eosinophils % 3 % Basophils % 0 % Neutrophils # 7.0 (1.3-7.7) k/uL Lymphocytes # 2.3 (1.0-4.8) k/uL Monocytes # 0.3 (0-1.0) k/uL Eosinophils # 0.3 (0-0.7) k/uL Basophils # 0.0 (0-0.2) k/uL Hypochromasia Slight HCG, Quant <2.4 mIU/mL Urine Color Light Yellow Urine Appearance Cloudy H (Clear) Urine pH 6.5 (5.0-8.0) Ur Specific [place] 1.003 (1.001-1.035) Urine Protein Negative (Negative) Urine Glucose (UA) Negative (Negative) Urine Ketones Negative (Negative) Urine Blood Small H (Negative) Urine Nitrite Negative (Negative) Urine Bilirubin Negative (Negative) Urine Urobilinogen <2.0 (<2.0) mg/dL Ur Leukocyte Esterase Negative (Negative) Urine RBC <1 (0-5) /hpf Urine WBC <1 (0-5) /hpf Ur Squamous Epith Cells <1 (0-4) /hpf Urine Bacteria Rare H (None) /hpf Disposition Clinical Impression: Menstruation, Abdominal cramping Disposition: HOME SELF-CARE Condition: Stable Instructions (If sedation given, give patient instructions): Menstruation (ED) Additional Instructions: Please return to the Emergency Department if symptoms worsen or any other concerns. Is patient prescribed a controlled substance at d/c from ED?: No Referrals: Frances Gibson MD [Primary Care Provider] - 1-2 days Time of Disposition: 09:58
[2018-08-15 09:23] LABS: Basophils % (A) 0 %; Eosinophils # (A) 0.3 k/uL (0-0.7); Eosinophils % (A) 3 %; HCT 44.7 % (34.0-46.0); HGB 14.1 gm/dL (11.4-16.0); Hypochromasia Slight; Lymphocytes # (A) 2.3 k/uL (1.0-4.8); Lymphocytes % (A) 23 %; MCHC 31.6 g/dL (31.0-37.0); MCV 88.5 fL (80.0-100.0); Monocytes # (A) 0.3 k/uL (0-1.0); Monocytes % (A) 3 %; Neutrophils % (A) 70 %; Platelet Count 404 k/uL (150-450); RBC 5.05 m/uL (3.80-5.40); RDW 14.2 % (11.5-15.5)
[2018-08-15 09:28] LABS: Appearance,Urine Cloudy (Clear); Bacteria,Urine Rare /hpf; Bilirubin,Urine Negative (Negative); Blood,Urine Small (Negative); Color,Urine Light Yellow; Glucose,Urine (UA) Negative (Negative); Ketones,Urine Negative (Negative); Leukocyte Esterase,Urine Negative (Negative); Nitrite,Urine Negative (Negative); PH, Urine 6.5 (5.0-8.0); Protein,Urine Negative (Negative); RBC,Urine <1 /hpf (0-5); Specific Gravity,Urine 1.003 (1.001-1.035); Squamous Epithelial Cell,Urine <1 /hpf (0-4); Urobilinogen,Urine <2.0 mg/dL (<2.0); WBC,Urine <1 /hpf (0-5)
--- NOTE | 2018-08-15 10:00 | US ---
EXAMINATION TYPE: Transabdominal DATE OF EXAM: 10/15/17 COMPARISON: NONE CLINICAL HISTORY: Pain. Positive home test, pelvic cramping x couple days, bleeding x 1 day , 4, para 3, history of EXAM PERFORMED: Transabdominal (TA) EXAM MEASUREMENTS: GESTATIONAL AGE / DATING Physician Established: Not established yet Dates by LMP: (4 weeks/2 days) EDC: 04/22/2019 Dates by First Scan: This is 1st scan Dates by Current Scan for: No IUP seen at this time MATERNAL ANATOMY Uterus: 9.1 x 3.8 x 5.1cm, anteverted Right Ovary: 3.0 x 1.7 x 3.0cm Left Ovary: 3.4 x 2.3 x 3.3cm Post CDS / Adnexa: wnl Presence of free fluid: no Presence of corpus luteal cyst: no Presence of subchorionic bleed: no GESTATION / SURVEY IUP: No IUP seen at this time Date of LMP: 07/16/2018 Beta HcG (if available): Not available at time of exam. IMPRESSION: No intrauterine identified this time. Correlate clinically hCG.
[2018-08-15 10:42] VITALS: BP 122/71; PULSE 72; RESP 18; TEMP 98.1
== END 2018-08-15 10:42 | disposition home or self-care (01) ==
LOC: EC 08:37
DX: N92.6 Irregular menstruation, unspecified (principal); R10.9 Unspecified abdominal pain; F17.200 Nicotine dependence, unspecified, uncomplicated; Z32.02 Encounter for pregnancy test, result negative; Z88.0 Allergy status to penicillin
CPT/HCPCS: 36415; 76801; 81001; 84702; 85025; 99284

== ENCOUNTER 2018-11-12 14:04 | Emergency (ER) | payer OTHER ==
[2018-11-12 14:16] VITALS: BP 108/76; PULSE 77; RESP 18; TEMP 98
--- NOTE | 2018-11-12 14:46 | XR ---
EXAMINATION TYPE: XR wrist complete RT DATE OF EXAM: 11/12/2018 CLINICAL HISTORY: pain TECHNIQUE: Frontal, lateral and oblique images of the right wrist are obtained. COMPARISON: None. FINDINGS: There is no acute fracture/dislocation evident. The joint spaces appear within normal limits. The o verlying soft tissue appears unremarkable. IMPRESSION: There is no acute fracture or dislocation seen. ICD 10 NO FRACTURE, INITIAL EVALUATION
--- NOTE | 2018-11-12 15:04 | ED ---
Upper Extremity HPI - General Chief Complaint: Extremity Injury, Upper Stated Complaint: Wrist Injury Time Seen by Provider: 11/12/18 14:27 Source: patient, RN notes reviewed Mode of arrival: ambulatory Limitations: no limitations - History of Present Illness Initial Comments: 27-year-old female presents emergency Department chief complaint of right wrist, thumb pain. Patient states this started over the weekend when she was raking and shoveling. Patient states has persisted and worse at work today when she moves her thumb or gross ulnar deviation or radial deviation. No paresthesias. Patient states she's been taken Motrin with no relief of symptoms. - Related Data Home Medications Medication Instructions Recorded Confirmed Acetaminophen Tab [Tylenol Tab] 1,000 mg PO Q6HR PRN 08/15/18 08/15/18 Previous Rx's Medication Instructions Recorded Acetaminophen-Codeine 300-30mg 1 tab PO Q4H PRN #12 tablet 11/12/18 [Tylenol #3] predniSONE 50 mg PO DAILY #5 tab 11/12/18 Allergies Allergy/AdvReac Type Severity Reaction Status Date / Time Penicillins Allergy Unknown Unknown Verified 11/12/18 14:16 Childhood Review of Systems ROS Statement: Those systems with pertinent positive or pertinent negative responses have been documented in the HPI. ROS Other: All systems not noted in ROS Statement are negative. Past Medical History Past Medical History: No Reported History History of Any Multi-Drug Resistant Organisms: None Reported Past Surgical History: Appendectomy, Section Past Anesthesia/Blood Transfusion Reactions: No Reported Reaction Past Psychological History: Anxiety Smoking Status: Current every day smoker Past Alcohol Use History: Occasional Past Drug Use History: None Reported - Past Family History Father Additional Family Medical History / Comment(s): Bipolar General Exam Limitations: no limitations General appearance: alert, in no apparent distress Head exam: Present: atraumatic, normocephalic, normal inspection Respiratory exam: Present: normal lung sounds bilaterally. Absent: respiratory distress, wheezes, rales, rhonchi, stridor Cardiovascular Exam: Present: regular rate, normal rhythm, normal heart sounds. Absent: systolic murmur, diastolic murmur, rubs, gallop, clicks Extremities exam: Present: other (Right thumb there is tenderness over the base of the wrist, MCP region, over the brachial radialis. Positive Mercedes's. Patient has chloride of the wrist and elbow neurovascular intact) Neurological exam: Present: alert, oriented X3, CN II-XII intact Course Vital Signs 11/12/18 14:14 Temperature 98.0 F Pulse Rate 77 Respiratory 18 Rate Blood Pressure 108/76 O2 Sat by Pulse 100 Oximetry Procedures - Orthopedic Splinting/Casting Injury #1 Side: right Upper Extremity Injury Location: short arm, wrist Upper Extremity Immobilizer: thumb spica Medical Decision Making - Medical Decision Making 27-year-old female presented for abdominal wrist pain. X-rays obtained which are negative. Patient has symptoms consistent with de Quervain tenosynovitis. Patient will be given oral steroids, placed in a thumb spica splint and follow- up with orthopedics. Disposition Clinical Impression: De Quervain's tenosynovitis Disposition: HOME SELF-CARE Condition: Stable Instructions (If sedation given, give patient instructions): De Quervain Disease (ED) Additional Instructions: Please return to the Emergency Department if symptoms worsen or any other concerns. Prescriptions: predniSONE 50 mg PO DAILY #5 tab Acetaminophen-Codeine 300-30mg [Tylenol #3] 1 tab PO Q4H PRN #12 tablet PRN Reason: pain Is patient prescribed a controlled substance at d/c from ED?: No Referrals: Frances Gibson MD [Primary Care Provider] - 1-2 days Fidel Larson DO [Medical Doctor] - 1-2 days Time of Disposition: 15:03
== END 2018-11-12 15:20 | disposition home or self-care (01) ==
LOC: EC 14:04
DX: M65.4 Radial styloid tenosynovitis [de Quervain] (principal); F17.200 Nicotine dependence, unspecified, uncomplicated; Z88.0 Allergy status to penicillin
CPT/HCPCS: 29125; 99283

== ENCOUNTER 2019-02-28 21:38 | Emergency (ER) | payer BC, OTHER ==
[2019-02-28 21:45] VITALS: TEMP 98.5
[2019-02-28 22:22] LABS: Basophils % (A) 0 %; Eosinophils # (A) 0.4 k/uL (0-0.7); Eosinophils % (A) 4 %; HCT 39.4 % (34.0-46.0); HGB 12.8 gm/dL (11.4-16.0); Lymphocytes # (A) 4.1 k/uL (1.0-4.8); Lymphocytes % (A) 37 %; MCHC 32.5 g/dL (31.0-37.0); Mean Platelet Volume 6.8; Monocytes # (A) 0.5 k/uL (0-1.0); Monocytes % (A) 4 %; Neutrophils # (A) 5.7 k/uL (1.3-7.7); Neutrophils % (A) 53 %; Platelet Count 311 k/uL (150-450); RBC 4.74 m/uL (3.80-5.40); RDW 15.1 % (11.5-15.5); WBC 10.8 k/uL (3.8-10.6)
[2019-02-28 22:34] LABS: ALT 11 U/L (9-52); AST 27 U/L (14-36); African American GFR (CKD) >90 (>60 ml/min/1.73 sqM); Alkaline Phosphatase 56 U/L (38-126); Anion Gap 8 mmol/L; Blood Urea Nitrogen 8 mg/dL (7-17); Calcium 9.3 mg/dL (8.4-10.2); Carbon Dioxide 21 mmol/L (22-30); Chloride 110 mmol/L (98-107); Glucose 102 mg/dL (74-99); Non-African American GFR(CKD) >90 (>60 ml/min/1.73 sqM); Sodium 139 mmol/L (137-145); Total Bilirubin 0.3 mg/dL (0.2-1.3)
--- NOTE | 2019-02-28 22:44 | XR ---
EXAM: XR Chest, 2 Views CLINICAL HISTORY: ITS.REASON XR Reason: Chest Pain TECHNIQUE: Frontal and lateral views of the chest. COMPARISON: No relevant prior studies available. FINDINGS: Lungs: Unremarkable. No consolidation. Pleural space: Unremarkable. No pneumothorax. Heart: Unremarkable. No cardiomegaly. Mediastinum: Unremarkable. Bones/joints: Unremarkable. IMPRESSION: Unremarkable chest x-rays.
[2019-02-28 22:57] LABS: Potassium 4.1 mmol/L (3.5-5.1)
[2019-02-28 23:01] VITALS: BP 113/64; PULSE 76; RESP 17
--- NOTE | 2019-02-28 23:11 | ED ---
Chest Pain HPI - General Chief Complaint: Chest Pain Stated Complaint: Chest pain Time Seen by Provider: 02/28/19 21:46 Source: patient Mode of arrival: ambulatory Limitations: no limitations - History of Present Illness Initial Comments: Patient is a 28-year-old female with history of anxiety and panic attacks that is presenting to the emergency department with a chief complaint of chest pain. Patient reports the pain started earlier today in the region inferior to the left breast and has now began to radiate to the left side of her neck and shoul yovanny. Patient reports the pain is exacerbated it with full inspiration and when she bends over to the right side. Patient also reports the pain is exacerbated every time she reaches for her seatbelt while driving. Patient denies any ripping chest pain radiating to the back or focal neural deficits. Patient denies any syncope, lightheadedness or dizziness. Patient does report a mild headache but states that is her baseline as she gets frequent headaches. Patient denies any nausea or vomiting. Patient reports taking Ativan prior coming to the emergency department. Patient denies chest palpitations, chest tightness or diaphoresis. Patient does report shortness of breath but states that is somewhat typical as she is a daily smoker. Laying down does not make the pain worse or better. - Related Data Home Medications Medication Instructions Recorded Confirmed Acetaminophen Tab [Tylenol Tab] 1,000 mg PO Q6HR PRN 08/15/18 08/15/18 Previous Rx's Medication Instructions Recorded Acetaminophen-Codeine 300-30mg 1 tab PO Q4H PRN #12 tablet 11/12/18 [Tylenol #3] predniSONE 50 mg PO DAILY #5 tab 11/12/18 Allergies Allergy/AdvReac Type Severity Reaction Status Date / Time Penicillins Allergy Unknown Unknown Verified 02/28/19 21:44 Childhood Review of Systems ROS Statement: Those systems with pertinent positive or pertinent negative responses have been documented in the HPI. ROS Other: All systems not noted in ROS Statement are negative. Past Medical History Past Medical History: No Reported History History of Any Multi-Drug Resistant Organisms: None Reported Past Surgical History: Appendectomy, Section Past Anesthesia/Blood Transfusion Reactions: No Reported Reaction Past Psychological History: Anxiety Smoking Status: Current every day smoker Past Alcohol Use History: Occasional Past Drug Use History: None Reported - Past Family History Father Additional Family Medical History / Comment(s): Bipolar General Exam - General Exam Comments Initial Comments: Normal sinus rhythm, possible anterior infarct, abnormal ECG. My interpretation: Normal sinus rhythm. Ventricular rate 75, ND interval 120, QRS duration 88, QT/QTc 382/426,P-R-T axes 28 44 34 Limitations: no limitations General appearance: alert, in no apparent distress Head exam: Present: atraumatic, normocephalic, normal inspection Eye exam: Present: normal appearance, PERRL, EOMI Pupils: Present: normal accommodation ENT exam: Present: normal exam, normal oropharynx, mucous membranes moist, TM's normal bilaterally, normal external ear exam Neck exam: Present: normal inspection, full ROM Respiratory exam: Present: normal lung sounds bilaterally, chest wall tenderness (Pain with lateral flexion of neck). Absent: accessory muscle use Cardiovascular Exam: Present: regular rate, normal rhythm, normal heart sounds. Absent: systolic murmur, diastolic murmur Extremities exam: Present: normal inspection, full ROM, normal capillary refill, other (+2 dorsalis pedis and posterior tibialis bilaterally). Absent: tenderness Back exam: Present: normal inspection, full ROM Neurological exam: Present: alert, oriented X3, other (Patient neurovascularly intact.) Psychiatric exam: Present: normal affect, normal mood Skin exam: Present: warm, intact, normal color Course Vital Signs 02/28/19 02/28/19 21:41 23:01 Temperature 98.5 F Pulse Rate 90 76 Respiratory 18 17 Rate Blood Pressure 117/79 113/64 O2 Sat by Pulse 100 100 Oximetry Chest Pain MDM - Differential Diagnosis Pleurisy-Other - MDM Patient is a 28-year-old female with history of anxiety and panic attacks is presenting to emergency Department with the chief complaint of chest pain. Based on history and physical examination suspect the patient's cause of symptoms are secondary to musculoskeletal etiology. The patient appears to have increased pain with certain anatomical movements. EKG is negative for GA, PE, pericarditis. Patient denies any ripping chest pain. Pulses are equal bilaterally on upper or lower extremities. CBC and CMP are unremarkable. Chest x-ray is unremarkable. No further workup for an GA is warranted at this time. Patient's vitals are stable. Patient advised to alternate between Tylenol and ibuprofen for pain control. Patient advised to follow with primary care. Strict return parameters were thoroughly discussed the patient is understanding and agreeable. Case discussed physician. Disposition Clinical Impression: Chest pain, muscular Disposition: HOME SELF-CARE Condition: Stable Instructions (If sedation given, give patient instructions): Chest Pain (ED) Additional Instructions: Please alternate between Tylenol and ibuprofen for pain control. Please follow up with primary care. Please return to emergency department if symptoms worsen. Is patient prescribed a controlled substance at d/c from ED?: No Referrals: Frances Gibson MD [Primary Care Provider] - 1-2 days Time of Disposition: 23:46
== END 2019-03-01 00:02 | disposition home or self-care (01) ==
LOC: EC 21:38
DX: R07.9 Chest pain, unspecified (principal); R94.31 Abnormal electrocardiogram [ECG] [EKG]; N64.4 Mastodynia; M54.2 Cervicalgia; M25.512 Pain in left shoulder; R06.02 Shortness of breath; R51 Headache; F17.200 Nicotine dependence, unspecified, uncomplicated; Z88.0 Allergy status to penicillin
CPT/HCPCS: 36415; 71046; 80053; 85025; 93005; 99285

== ENCOUNTER → 2019-07-17 | Outpatient (CLI) | payer BC, OTHER ==
[2019-07-17 12:49] LABS: Basophils % (A) 1 %; Eosinophils # (A) 0.2 k/uL (0-0.7); Eosinophils % (A) 2 %; HCT 44.8 % (34.0-46.0); HGB 14.3 gm/dL (11.4-16.0); Lymphocytes # (A) 2.9 k/uL (1.0-4.8); Lymphocytes % (A) 30 %; MCH 28.7 pg (25.0-35.0); MCHC 31.9 g/dL (31.0-37.0); Monocytes # (A) 0.5 k/uL (0-1.0); Monocytes % (A) 5 %; Neutrophils # (A) 5.9 k/uL (1.3-7.7); Neutrophils % (A) 61 %; Platelet Count 363 k/uL (150-450); RBC 4.98 m/uL (3.80-5.40); RDW 13.1 % (11.5-15.5); WBC 9.6 k/uL (3.8-10.6)
== END | disposition home or self-care (01) ==
LOC: LABPAT 11:25
PROVIDERS: ATTEND Obstetrics & Gynecology
DX: Z01.812 Encounter for preprocedural laboratory examination (principal)
CPT/HCPCS: 36415; 85025

== ENCOUNTER → 2019-08-04 | Day surgery (SDC) | payer BC, OTHER ==
[2019-08-03 08:36] VITALS: BMI 25.0
--- NOTE | 2019-08-03 18:12 | HP ---
HISTORY AND PHYSICAL DATE OF DICTATION: 08/03/2019 for surgery on 08/04/2019 HISTORY OF PRESENT ILLNESS: The patient is a 28-year-old 3, para 3-0-0-3, who presents to the office requesting laparoscopic bilateral tubal occlusion with Filshie clips. She currently has a Nexplanon in place but is having significantly irregular bleeding and has requested permanent sterilization alternatively. She does understand that there are multiple other long-term reversible alternatives but has requested the procedure as noted above. PAST MEDICAL HISTORY: Significant for history of cholelithiasis. PAST SURGICAL HISTORY: Significant for appendectomy in 2005, a in 2010 and a LEEP procedure in 2018. OBSTETRICAL HISTORY: 3, para 3-0-0-3, with 3 term deliveries, the first being a delivery followed by 2 successful vaginal births after section. Current method of contraception is Nexplanon. GYNECOLOGIC HISTORY: Unremarkable with no history of any infections to include STDs. FAMILY HISTORY: Noncontributory. SOCIAL HISTORY: The patient is but does have a significant other. She is a roughly half a pack per day smoker and denies any other significant social concerns. CURRENT MEDICATIONS: Include only the Nexplanon, which is in place. ALLERGIES: She has reported ALLERGY TO PENICILLIN, for which the reaction is undocumented. PHYSICAL EXAMINATION: Vital signs are stable. The patient is afebrile. In general this is a well-developed, well-nourished white female in no acute distress. Her heart has a regular rhythm and rate without murmur. Her lungs are clear to auscultation bilaterally in all [place]. Her abdomen is nondistended, has normoactive bowel sounds, soft, nontender, without any palpable masses aside from the uterine fundus. Her extremities are without any cyanosis, clubbing, or edema and are nontender to palpation bilaterally. Pelvic examination demonstrates normal external genitalia and BUS with normal vaginal mucosa and cervix. The uterus approximately 4-5 weeks in size, mid plane, mobile, nontender, normal in shape. The adnexa are normal and nontender without mass bilaterally. ASSESSMENT AND PLAN: Contraception: The patient has, after a long discussion regarding options permanent and otherwise, opted to proceed with permanent sterilization, laparoscopic bilateral tubal occlusion with Filshie clips. We will also include at the time of the procedure removal of the Nexplanon device. The risks and complications of the procedure have been discussed at length, including the risks for bleeding, bleeding requiring transfusion, infection, and injury to local structures to specifically include the risks of bowel, bladder and ureters. She has understood all this and has agreed to proceed. MMDEMI / IJN: [id number] /
[~2019-08-04] MED LIST: Acetaminophen-Codeine 300-30mg TAB PO ONE; Acetaminophen-Codeine 300-30mg TAB PO PRN; BUPIVACAINE (PF) 0.5% 30 ML VIAL SQ ONE; DEXAMETHASONE SOD PHOSPHATE 10 MG/ML 1 ML VIAL IV ONE; GLYCOPYRROLATE 0.2 MG/ML 2 ML VIAL ONE; HYDROmorphone 0.5 MG/0.5 ML SYRINGE IVP PRN; IBUPROFEN 600 MG TAB PO PRN; KETOROLAC 30 MG/ML 1 ML VIAL IVP PRN; KETOROLAC 30 MG/ML 1 ML VIAL ONE; LACTATED RINGERS 1,000 ML IV SCH; LIDOCAINE 1% 20 ML VIAL (10MG/ML) FOR IV START INTRADERMA PRN; LIDOCAINE 1% INJ 10MG/ML (20 ML MDV) ONE; METOCLOPRAMIDE 5 MG/ML 2 ML VIAL IVP PRN; MIDAZOLAM 2 MG/2 ML VIAL IV PRN; MIDAZOLAM 2 MG/2 ML VIAL ONE; NEOSTIGMINE 1 MG/ML 10 ML VIAL ONE; ONDANSETRON 4 MG/2 ML VIAL IVP ONE; ONDANSETRON 4 MG/2 ML VIAL IVP PRN; PROPOFOL 10 MG/ML 20 ML VIAL IV ONE; Pre Op ABX Message 1 EACH MISC MISCELLANE ONE; ROCURONIUM BROMIDE 10 MG/ML 10 ML VIAL IV ONE; SCOPOLAMINE 1.5MG/72HR PATCH TRANSDERM ONE; SIMETHICONE 80 MG CHEWABLE PO PRN; SUCCINYLCHOLINE CHLORIDE 100 MG/5 ML SYR IV ONE; diphenhydrAMINE 50 MG/ML 1 ML VIAL IVP PRN; fentaNYL (PF) 50 MCG/ML 2 ML AMP ONE
[2019-08-04 06:46] VITALS: RESP 16
--- NOTE | 2019-08-04 08:26 | P.OP ---
Date of Procedure: 08/04/19 Preoperative Diagnosis: #1. Multiparity #2. Undesired fertility Postoperative Diagnosis: Same Procedure(s) Performed: #1. Nexplanon removal #2. Laparoscopic bilateral tubal occlusion with Filshie clips Anesthesia: SHARON Surgeon: Bassem Escobar Estimated Blood Loss (ml): 5 IV fluids (ml): 700 Urine output (ml): 30 Pathology: none sent Condition: stable Disposition: PACU Operative Findings: Preoperatively, the Nexplanon was noted and easily palpable in the typical spot on the inside of the left upper arm. Preoperative pelvic examination demonstrated a 4-5 week acutely anteverted mobile normal shaped uterus with normal adnexa bilaterally. Intraoperatively, the uterus, tubes, and ovaries were entirely normal to inspection with no evidence of any pathology in the pelvis. There was no evidence of endometriosis throughout. The small bowel, large bowel, and upper abdomen were entirely normal to inspection. There was evidence of previous appendectomy with the staple line noted. A Filshie clip was placed firmly across each fallopian tube in the isthmic portion bilaterally. The Nexplanon was removed intact without difficulty and discarded. Description of Procedure: The patient's left arm was elevated and the area of intended excision of the On rapid with Betadine. The tip was elevated to the site of insertion which was then opened sharply with an 11 blade scalpel. The tip of the Nexplanon was manipulated into the field where it was teased out with the scalpel blade and grasped with a hemostat allowing removal without difficulty. The small roughly 2-3 mm incision or puncture wound was then covered with a Steri-Strip and Band- Aid. Attention was turned to the remainder the patient after the patient was repositioned with her arm in the standard surgical position. A speculum was placed in the anterior lip of the cervix grasped with single-tooth tenaculum allowing placement of an acorn cannula for intraoperative manipulation. The bladder was drained of approximately 30 mL of clear rachel urine. Attention was then returned to the abdomen where a 5 mm incision was made in the vertical fold of the umbilicus allowing insertion of a 5 mm optical trocar under direct visualization without difficulty. A pneumoperitoneum was established and Trendelenburg positioning utilized to sweep the bowel from the pelvis. A site was selected in the midline approximately 4-5 cm above the pubic symphysis in the site of previous section scar where an 8 mm incision was made in the transverse plane allowing insertion of an 8 mm trocar under direct visualization without difficulty. The blunt probe was utilized to further sweep the bowel from the pelvis. The findings are as noted above. The probe was replaced with a Filshie clip applicator which was utilized to place a Filshie clip firmly across the isthmic portion of the fallopian tube approximately 3 cm from the cornu on each side without difficulty. Inspection of the remainder of the abdomen demonstrated only normal findings as noted above. There was evidence of a previous appendectomy of the staple line noted at the ileocecal junction. After ensuring no further pathology, the pneumoperitoneum was evacuated through the 2 trochars and the trochars removed without difficulty. The skin was closed with interrupted subcuticular stitches of 4-0 Vicryl followed by half-inch Steri-Strips placed with Mastisol. Each incision was infused with approximate 5 mL of half percent Marcaine without epinephrine. Estimated blood loss for the entire case was 5 mL or less. There were no complications. All sponge, instrument, needle counts were correct. The patient tolerated the procedure well and proceeded to the recovery room in stable condition.
[2019-08-04] MEDS: MEPERIDINE 50 MG/ML SYRINGE IVP ONE ×2 (08:33→08:53)
[2019-08-04 08:40] VITALS: TEMP 97.2
[2019-08-04] MEDS: LACTATED RINGERS 1,000 ML IV SCH ×2 (08:53→09:15)
[2019-08-04 10:05] VITALS: BP 100/64; PULSE 69
== END | disposition home or self-care (01) ==
LOC: OR 06:30
PROVIDERS: ATTEND Obstetrics & Gynecology
DX: Z30.2 Encounter for sterilization (principal); Z30.46 Encounter for surveillance of implantable subdermal contraceptive; Z90.49 Acquired absence of other specified parts of digestive tract; F17.210 Nicotine dependence, cigarettes, uncomplicated; Z88.0 Allergy status to penicillin; Z79.899 Other long term (current) drug therapy
CPT/HCPCS: 81025; 58671; 11982; J2250; J1100; J2710; J2175; J2405; J2001; J3010; J1885; J0330; J2704

== ENCOUNTER → 2020-04-20 | Outpatient (CLI) | payer BC | END | disposition home or self-care (01) | LOC: LABWHC1 08:45 | PROVIDERS: ATTEND Internal Medicine | DX: R05 Cough (principal); R50.9 Fever, unspecified ==

== ENCOUNTER 2021-02-28 13:46 | Emergency (ER) | payer BC ==
[2021-02-28 13:59] VITALS: TEMP 98.2
[2021-02-28 14:21] LABS: Appearance,Urine Cloudy (Clear); Bilirubin,Urine Negative (Negative); Blood,Urine Moderate (Negative); Color,Urine Yellow; Glucose,Urine (UA) Negative (Negative); Ketones,Urine Negative (Negative); Leukocyte Esterase,Urine Negative (Negative); Mucus,Urine Many /hpf; Nitrite,Urine Negative (Negative); Protein,Urine Negative (Negative); RBC,Urine 3 /hpf (0-5); Specific Gravity,Urine 1.014 (1.001-1.035); Squamous Epithelial Cell,Urine 10 /hpf (0-4); Urobilinogen,Urine <2.0 mg/dL (<2.0); WBC,Urine 4 /hpf (0-5)
[2021-02-28] MEDS ORDERED: SODIUM CHLORIDE 0.9% 1,000 ML IV STA (15:07)
[2021-02-28] MEDS ORDERED: KETOROLAC 15 MG/ML 1 ML VIAL IVP STA (15:07)
[2021-02-28] MEDS ORDERED: ONDANSETRON 4 MG/2 ML VIAL IVP STA (15:07)
[2021-02-28] MEDS ORDERED: PANTOPRAZOLE 40 MG/10 ML VIAL IVP STA (15:13)
--- NOTE | 2021-02-28 15:17 | ED ---
Abdominal Pain HPI - General Chief Complaint: Abdominal Pain Stated Complaint: Abd pain Time Seen by Provider: 02/28/21 15:05 Source: patient Mode of arrival: ambulatory Limitations: no limitations - History of Present Illness Initial Comments: 30-year-old female presents to emergency Department with a chief complaint of abdominal pain. Patient states the pain is located in the right side of the pelvis and started around 8 AM this morning after she got to work. Patient reports he feels a burning sensation, 8/10 without any radiation. Patient repo rts some nausea but denies any vomiting. States she's previous experience similar pain like this in between her menstrual cycle. This was rather consistent but has been a symptomatically for the past several months. She denies any diarrhea or constipation. Denies any urinary or vaginal symptoms. Abdominal surgical history of appendectomy, and tubal ligation. Denies any fevers or chills chest pain back pain and shortness of breath. Denies hematuria, hematochezia or melena. - Related Data Home Medications Medication Instructions Recorded Confirmed Melatonin 10 mg PO HS PRN 08/03/19 08/04/19 Allergies Allergy/AdvReac Type Severity Reaction Status Date / Time Penicillins Allergy Unknown Unknown Verified 02/28/21 13:59 Childhood Review of Systems ROS Statement: Those systems with pertinent positive or pertinent negative responses have been documented in the HPI. ROS Other: All systems not noted in ROS Statement are negative. Past Medical History Past Medical History: No Reported History History of Any Multi-Drug Resistant Organisms: None Reported Past Surgical History: Appendectomy, Section, Tubal Ligation Past Anesthesia/Blood Transfusion Reactions: No Reported Reaction Past Psychological History: Anxiety Smoking Status: Current every day smoker Past Alcohol Use History: Occasional Past Drug Use History: None Reported - Past Family History Father Additional Family Medical History / Comment(s): Bipolar. General Exam Limitations: no limitations General appearance: alert, in no apparent distress Head exam: Present: atraumatic, normocephalic, normal inspection Eye exam: Present: normal appearance, PERRL Pupils: Present: normal accommodation ENT exam: Present: normal exam, normal oropharynx, mucous membranes moist Neck exam: Present: normal inspection, full ROM. Absent: tenderness Respiratory exam: Present: normal lung sounds bilaterally. Absent: respiratory distress, wheezes, rales, rhonchi, stridor, chest wall tenderness Cardiovascular Exam: Present: regular rate, normal rhythm, normal heart sounds. Absent: systolic murmur, diastolic murmur GI/Abdominal exam: Present: soft, tenderness (Right-sided pelvic pain). Absent: distended, guarding, rebound Extremities exam: Present: normal inspection, full ROM, normal capillary refill. Absent: tenderness, pedal edema, joint swelling Back exam: Present: normal inspection, full ROM. Absent: tenderness, CVA tenderness (R), CVA tenderness (L) Neurological exam: Present: alert, oriented X3 Psychiatric exam: Present: normal affect, normal mood Skin exam: Present: warm, dry, intact, normal color Course Vital Signs 02/28/21 02/28/21 13:57 17:56 Temperature 98.2 F Pulse Rate 76 68 Respiratory 20 18 Rate Blood Pressure 125/83 99/66 O2 Sat by Pulse 99 98 Oximetry Medical Decision Making - Medical Decision Making 30-year-old female presents to emergency Department with a chief complaint of abdominal pain. On physical examination, right-sided pelvic pain. Append ectomy. Transvaginal ultrasound shows no acute findings. Laboratory work is also unremarkable. UA shows hematuria or patient did recently finish her menstrual cycle. Patient was given analgesics, anti-emetics and analgesia. On reevaluation, she reports prominent symptoms. 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 Strict return parameters were thoroughly discussed patient is understanding ago. Case discussed with Dr. Galan - Lab Data Result diagrams: 02/28/21 11:24 02/28/21 15:49 Lab Results 02/28/21 02/28/21 02/28/21 Range/Units 11:24 14:00 14:00 WBC 9.0 (3.8-10.6) k/uL RBC 4.80 (3.80-5.40) m/uL Hgb 14.2 (11.4-16.0) gm/dL Hct 42.8 (34.0-46.0) % MCV 89.2 (80.0-100.0) fL MCH 29.5 (25.0-35.0) pg MCHC 33.1 (31.0-37.0) g/dL RDW 14.4 (11.5-15.5) % Plt Count 329 (150-450) k/uL MPV 6.9 Neutrophils % 58 % Lymphocytes % 33 % Monocytes % 5 % Eosinophils % 2 % Basophils % 0 % Neutrophils # 5.2 (1.3-7.7) k/uL Lymphocytes # 3.0 (1.0-4.8) k/uL Monocytes # 0.5 (0-1.0) k/uL Eosinophils # 0.2 (0-0.7) k/uL Basophils # 0.0 (0-0.2) k/uL Sodium (137-145) mmol/L Potassium (3.5-5.1) mmol/L Chloride (98-107) mmol/L Carbon Dioxide (22-30) mmol/L Anion Gap mmol/L BUN (7-17) mg/dL Creatinine (0.52-1.04) mg/dL Est GFR (CKD-EPI)AfAm (>60 ml/min/1.73 sqM) Est GFR (CKD-EPI)NonAf (>60 ml/min/1.73 sqM) Glucose (74-99) mg/dL Calcium (8.4-10.2) mg/dL Total Bilirubin (0.2-1.3) mg/dL AST (14-36) U/L ALT (4-34) U/L Alkaline Phosphatase (38-126) U/L Total Protein (6.3-8.2) g/dL Albumin (3.5-5.0) g/dL Lipase (23-300) U/L Urine Color Yellow Urine Appearance Cloudy H (Clear) Urine pH 6.0 (5.0-8.0) Ur Specific [place] 1.014 (1.001-1.035) Urine Protein Negative (Negative) Urine Glucose (UA) Negative (Negative) Urine Ketones Negative (Negative) Urine Blood Moderate H (Negative) Urine Nitrite Negative (Negative) Urine Bilirubin Negative (Negative) Urine Urobilinogen <2.0 (<2.0) mg/dL Ur Leukocyte Esterase Negative (Negative) Urine RBC 3 (0-5) /hpf Urine WBC 4 (0-5) /hpf Ur Squamous Epith Cells 10 H (0-4) /hpf Urine Mucus Many H (None) /hpf Urine HCG, Qual Not Detected (Not Detectd) 02/28/21 Range/Units 15:49 WBC (3.8-10.6) k/uL RBC (3.80-5.40) m/uL Hgb (11.4-16.0) gm/dL Hct (34.0-46.0) % MCV (80.0-100.0) fL MCH (25.0-35.0) pg MCHC (31.0-37.0) g/dL RDW (11.5-15.5) % Plt Count (150-450) k/uL MPV Neutrophils % % Lymphocytes % % Monocytes % % Eosinophils % % Basophils % % Neutrophils # (1.3-7.7) k/uL Lymphocytes # (1.0-4.8) k/uL Monocytes # (0-1.0) k/uL Eosinophils # (0-0.7) k/uL Basophils # (0-0.2) k/uL Sodium 136 L (137-145) mmol/L Potassium 4.1 (3.5-5.1) mmol/L Chloride 107 (98-107) mmol/L Carbon Dioxide 23 (22-30) mmol/L Anion Gap 6 mmol/L BUN 6 L (7-17) mg/dL Creatinine 0.51 L (0.52-1.04) mg/dL Est GFR (CKD-EPI)AfAm >90 (>60 ml/min/1.73 sqM) Est GFR (CKD-EPI)NonAf >90 (>60 ml/min/1.73 sqM) Glucose 90 (74-99) mg/dL Calcium 9.4 (8.4-10.2) mg/dL Total Bilirubin 0.2 (0.2-1.3) mg/dL AST 27 (14-36) U/L ALT 14 (4-34) U/L Alkaline Phosphatase 75 (38-126) U/L Total Protein 6.8 (6.3-8.2) g/dL Albumin 4.1 (3.5-5.0) g/dL Lipase 180 (23-300) U/L Urine Color Urine Appearance (Clear) Urine pH (5.0-8.0) Ur Specific [place] (1.001-1.035) Urine Protein (Negative) Urine Glucose (UA) (Negative) Urine Ketones (Negative) Urine Blood (Negative) Urine Nitrite (Negative) Urine Bilirubin (Negative) Urine Urobilinogen (<2.0) mg/dL Ur Leukocyte Esterase (Negative) Urine RBC (0-5) /hpf Urine WBC (0-5) /hpf Ur Squamous Epith Cells (0-4) /hpf Urine Mucus (None) /hpf Urine HCG, Qual (Not Detectd) Disposition Clinical Impression: Abdominal pain Disposition: HOME SELF-CARE Condition: Stable Instructions (If sedation given, give patient instructions): Abdominal Pain (ED) Additional Instructions: Please return to the Emergency Department if symptoms worsen or any other concerns. Is patient prescribed a controlled substance at d/c from ED?: No Referrals: Frances Gibson MD [Primary Care Provider] - 1-2 days Time of Disposition: 17:34
[2021-02-28 16:04] LABS: Basophils % (A) 0 %; Eosinophils # (A) 0.2 k/uL (0-0.7); Eosinophils % (A) 2 %; HCT 42.8 % (34.0-46.0); HGB 14.2 gm/dL (11.4-16.0); Lymphocytes % (A) 33 %; MCH 29.5 pg (25.0-35.0); MCHC 33.1 g/dL (31.0-37.0); MCV 89.2 fL (80.0-100.0); Mean Platelet Volume 6.9; Monocytes # (A) 0.5 k/uL (0-1.0); Monocytes % (A) 5 %; Neutrophils # (A) 5.2 k/uL (1.3-7.7); Neutrophils % (A) 58 %; Platelet Count 329 k/uL (150-450); RDW 14.4 % (11.5-15.5)
[2021-02-28 16:15] LABS: ALT 14 U/L (4-34); AST 27 U/L (14-36); African American GFR (CKD) >90 (>60 ml/min/1.73 sqM); Albumin 4.1 g/dL (3.5-5.0); Alkaline Phosphatase 75 U/L (38-126); Anion Gap 6 mmol/L; Blood Urea Nitrogen 6 mg/dL (7-17); Calcium 9.4 mg/dL (8.4-10.2); Carbon Dioxide 23 mmol/L (22-30); Chloride 107 mmol/L (98-107); Glucose 90 mg/dL (74-99); Lipase 180 U/L (23-300); Non-African American GFR(CKD) >90 (>60 ml/min/1.73 sqM); Potassium 4.1 mmol/L (3.5-5.1); Sodium 136 mmol/L (137-145); Total Bilirubin 0.2 mg/dL (0.2-1.3); Total Protein 6.8 g/dL (6.3-8.2)
--- NOTE | 2021-02-28 16:54 | US ---
EXAMINATION TYPE: US transvaginal DATE OF EXAM: 02/28/2021 COMPARISON: NONE CLINICAL HISTORY: right pelvic pain. right pelvic pain. history of tubal ligation and TECHNIQUE: Transvaginal (TV) Date of LMP: 02/19/21 EXAM MEASUREMENTS: Uterus: 9.1 x 4.3 x 5.2 cm Endometrial Stripe: 1.1 cm Right Ovary: 2.7 x 2.2 x 2.4 cm Left Ovary: not visualized 1. Uterus: Anteverted 2. Endometrium: small amount of fluid within 3. Right Ovary: limited evaluation due to overlying bowel, slightly heterogeneous 4. Left Ovary: Obscured by overlying bowel gas Spectral, color and waveform doppler imaging shows good arterial and venous flow within the right o vary; there is no evidence for ovarian torsion. 5. Bilateral Adnexa: wnl 6. Posterior cul-de-sac: wnl IMPRESSION: Normal endometrium. No adnexal mass or free fluid. No evidence of ovarian torsion.
[2021-02-28] MEDS ORDERED: ACET/COD 300 MG/30 MG STARTER PACK 6 TAB BTL PO STA (17:52)
[2021-02-28 17:58] VITALS: BP 99/66; PULSE 68; RESP 18
== END 2021-02-28 17:58 | disposition home or self-care (01) ==
LOC: EC 13:46
DX: R10.2 Pelvic and perineal pain (principal); F41.9 Anxiety disorder, unspecified; F17.200 Nicotine dependence, unspecified, uncomplicated; Z88.0 Allergy status to penicillin; Z90.49 Acquired absence of other specified parts of digestive tract; Z98.51 Tubal ligation status
CPT/HCPCS: 99284 ×2; 96374 ×2; 96375 ×3; 96361 ×3; 36415; 80053; 83690; 85025; 81001; 81025; 93976; 76830; J2405; J1885; C9113

== ENCOUNTER 2022-01-23 14:34 | Emergency (ER) | payer BC, OTHER ==
[2022-01-23 14:46] VITALS: BP 129/79; PULSE 74; RESP 19; TEMP 97.5
--- NOTE | 2022-01-23 15:52 | ED ---
General Adult HPI - General Chief complaint: Shortness of Breath Stated complaint: GINNY,L arm/shoulder numbness Time Seen by Provider: 01/23/22 15:40 Source: patient, RN notes reviewed, old records reviewed Mode of arrival: ambulatory Limitations: no limitations - History of Present Illness Initial comments: This is a 31-year-old female who has no medical problem but does smoke. Patient states she was eating lunch today when she felt her heart starting to race she thought a component of her chest and then she became a little lightheaded and felt some mild shortness of breath. Patient states she did have some tingling left shoulder. Patient states she feels considerably better now patient denies any recent fever chills or cough. Patient denies any swelling to the legs. Patient denies any abdominal patient denies nausea vomiting or diarrhea. Patient denies being on control or having any recent long trips or travel. - Related Data Home Medications Medication Instructions Recorded Confirmed Melatonin [Melatonin Dissolving 10 mg PO HS PRN 08/03/19 08/04/19 Tablet] Allergies Allergy/AdvReac Type Severity Reaction Status Date / Time Penicillins Allergy Unknown Unknown Verified 02/28/21 13:59 Childhood Review of Systems ROS Statement: Those systems with pertinent positive or pertinent negative responses have been documented in the HPI. ROS Other: All systems not noted in ROS Statement are negative. Past Medical History Past Medical History: No Reported History History of Any Multi-Drug Resistant Organisms: None Reported Past Surgical History: Appendectomy, Section, Tubal Ligation Past Anesthesia/Blood Transfusion Reactions: No Reported Reaction Past Psychological History: Anxiety Smoking Status: Current every day smoker Past Alcohol Use History: Occasional Past Drug Use History: None Reported - Past Family History Father Additional Family Medical History / Comment(s): Bipolar. General Exam - General Exam Comments Initial Comments: GENERAL: Patient is well-developed and well-nourished. Patient is nontoxic and well-hy drated and is in no acute distress. ENT: Neck is soft and supple. No significant lymphadenopathy is noted. Oropharynx is clear. Moist mucous membranes. Neck has full range of motion without elici ting any pain. EYES: The sclera were anicteric and conjunctiva were pink and moist. Extraocular movements were intact and pupils were equal round and reactive to light. Eyelids were unremarkable. PULMONARY: Unlabored respirations. Good breath sounds bilaterally. No audible rales rhonchi or wheezing was noted. CARDIOVASCULAR: There is a regular rate and rhythm without any murmurs gallops or rubs. ABDOMEN: Soft and nontender with normal bowel sounds. SKIN: Skin is clear with no lesions or rashes and otherwise unremarkable. NEUROLOGIC: Patient is alert and oriented x3. Cranial nerves II through XII are grossly intact. Motor and sensory are also intact. Normal speech, volume and content. Symmetrical smile. MUSCULOSKELETAL: Normal extremities with adequate strength and full range of motion. No lower extremity swelling or edema. No calf tenderness. LYMPHATICS: No significant lymphadenopathy is noted PSYCHIATRIC: Patient appears mildly anxious Limitations: no limitations Course Vital Signs 01/23/22 14:42 Temperature 97.5 F L Pulse Rate 74 Respiratory 19 Rate Blood Pressure 129/79 O2 Sat by Pulse 100 Oximetry Medical Decision Making - Medical Decision Making EKG shows sinus rhythm at 67 bpm VT interval 170 dresses 190 QT intervals 388 QTC is 43. Patient's EKG shows no ST segment elevation or depression. Patient's chest x-ray shows no acute normalities. I went back and reevaluated the patient on 2 different occasions and she was asymptomatic throughout her ED stay and felt comfortable going home. Patient should follow-up with primary medical care doctor to get a Holter monitor. Disposition Clinical Impression: Palpitations Disposition: HOME SELF-CARE Condition: Good Instructions (If sedation given, give patient instructions): Heart Palpitations (ED) Additional Instructions: Patient stopped the primary medical care doctor for a possible event monitor for her heart. Patient should return to emergency department if there is new or worsening symptoms. Is patient prescribed a controlled substance at d/c from ED?: No Referrals: Frances Gibson MD [Primary Care Provider] - 1-2 days Time of Disposition: 16:46
--- NOTE | 2022-01-23 16:30 | XR ---
EXAMINATION TYPE: XR chest 2V DATE OF EXAM: 01/23/2022 COMPARISON: Chest x-ray 02/28/2019 HISTORY: Difficulty breathing, shortness of breath TECHNIQUE: Frontal and lateral views of the chest are obtained. FINDINGS: There is no focal air space opacity, pleural effusion, or pneumothorax seen. The cardiac silhouette size is within normal limits. The osseous structures are intact, there is a scoliosis of the thoracic spine. IMPRESSION: No acute cardiopulmonary process.
== END 2022-01-23 17:10 | disposition home or self-care (01) ==
LOC: EC 14:34
DX: R00.2 Palpitations (principal); F17.200 Nicotine dependence, unspecified, uncomplicated
CPT/HCPCS: 71046; 93005; 99285